=== PATIENT | female | born 1990 | race Asian ===

== ENCOUNTER 2024-12-07 19:47 | Inpatient (IN) | payer OTHER, SELFPAY ==
[2024-12-07 19:50] VITALS: BMI 31.7
[2024-12-07 20:23] VITALS: BP 110/78
[2024-12-07 20:25] LABS: % Basophils 0.3 % (0-2); % Eosinophils 2.1 % (0-6); % Lymphocytes 20.5 % (20.5-51.1); % Monocytes 6.5 % (1.7-9.3); % Neutrophils 69.6 % (42.2-75.2); Absolute Basophils 0.1 10^3/uL (0-0.2); Absolute Eosinophils 0.3 10^3/uL (0-0.7); Absolute Immature Granulocytes 0.2 10^3/uL (0-0.05); Absolute Neutrophils 10.2 10^3/uL (1.4-6.5); Hematocrit 35.5 % (37.0-47.0); Hemoglobin 12.2 g/dL (12.0-16.0); Mean Corp Hgb Conc. 34.4 g/dL (33.0-37.0); Mean Corpuscular Hgb 31.5 pg (27.0-31.0); Mean Corpuscular Volume 91.7 fL (81.0-99.0); Mean Platelet Volume 11.6 fL (7.4-10.4); Nucleated Red Blood Cells % 0 %; Platelet Count 265 10^3/uL (130-400); Red Blood Cell Count 3.87 10^6/uL (4.20-5.40); White Blood Cell Count 14.7 10^3/uL (4.8-10.8)
[2024-12-07] MEDS: CYTOTEC 50 MICROGRAM VAG (20:29)
[2024-12-07] MEDS: LR 1000 IV ×2 (21:44→23:46)
[2024-12-08] MEDS: LR 1000 IV (04:12)
[2024-12-08] MEDS: FENTANYL/BUPIVACAINE 100 EPIDURAL (04:20)
[2024-12-08] MEDS: SUBLIMAZE 100 MCG EPIDURAL (04:20)
[2024-12-08] MEDS: ANCEF 10 IV (07:40)
[2024-12-08] MEDS: ZITHROMAX INFUSION 250 IV (08:00)
[2024-12-08 08:25] LABS: Cord VBG B.E. - POC -3.8 mmol/L; Cord VBG HCO3 - POC 23 mmol/L; Cord VBG O2 Sat % - POC 34.1 %; Cord VBG pCO2 - POC 48 mmHg; Cord VBG pO2 - POC 23 mmHg
[2024-12-08] MEDS: TORADOL 15 MG IV ×2 (13:58→19:57)
[2024-12-08] MEDS: FLUSH (NSS) 3 FLUSH IV (19:57)
[2024-12-09] MEDS: TYLENOL 650 MG PO ×3 (00:37→19:58)
[2024-12-09] MEDS: TORADOL 15 MG IV ×2 (02:04→09:00)
[2024-12-09] MEDS: FLUSH (NSS) 3 FLUSH IV (02:05)
[2024-12-09 04:45] LABS: Hematocrit 27.4 % (37.0-47.0); Hemoglobin 9.2 g/dL (12.0-16.0); Mean Corp Hgb Conc. 33.6 g/dL (33.0-37.0); Mean Corpuscular Hgb 31.7 pg (27.0-31.0); Mean Corpuscular Volume 94.5 fL (81.0-99.0); Mean Platelet Volume 11.6 fL (7.4-10.4); Platelet Count 192 10^3/uL (130-400); Red Cell Dist. Width 14.6 % (11.5-14.5); White Blood Cell Count 17.9 10^3/uL (4.8-10.8)
[2024-12-09] MEDS: PRENATAL PLUS 1 TABLET PO (09:00)
[2024-12-09] MEDS: SENOKOT-S 1 TABLET PO (09:02)
--- NOTE | 2024-12-09 10:54 | CM ---
Mother seen bedside with baby boy and present. Mother interested in breast pump, provided CM with script signed by Doctor. Mother has chosen the [employer]ra pump, referral form faxed to Uma at [facility]. Uma aware of referral and will
deliver pump to patients home tomorrow, home address confirmed by CM. Mother and father report this is their first child, have all supplies needed, plan to return to [place] in January. Mother reports she does not have a nuisance wildlife specialist at this time, is
looking into options and will plan to transition to a new nuisance wildlife specialist once back in [place]. CM will continue to follow for all discharge planning needs.
Plan; home when stable, breast pump ordered
[2024-12-09] MEDS: MOTRIN 600 MG PO (19:57)
[2024-12-10] MEDS: PRENATAL PLUS 1 TABLET PO (08:42)
[2024-12-10] MEDS: SENOKOT-S 1 TABLET PO (08:43)
[2024-12-10] MEDS: MYLICON 80 MG PO (08:44)
[2024-12-10] MEDS: MOTRIN 600 MG PO ×2 (08:45→23:50)
[2024-12-10] MEDS: TYLENOL 650 MG PO ×2 (08:46→23:50)
[2024-12-11] MEDS: PRENATAL PLUS 1 TABLET PO (08:29)
[2024-12-11] MEDS: MOTRIN 600 MG PO (08:29)
[2024-12-11] MEDS: SENOKOT-S 1 TABLET PO (08:29)
[2024-12-11 13:44] LABS: Syphilis/T. pallidum Ab Reflex Negative (Negative)
--- NOTE | 2024-12-11 17:02 | CON.MD ---
Consultation - Medical
-
patient seen chart reviewed. this consult was done today december 11 2024. the patient is a 34 yo woman who gave via c section to a baby boy. there was some distress thick meconium noted in operative note but is now doing well. the patient
scored 13 on depression scale. unit usually accepts up to 10 hence this consult . dell reports over the years she has had some periods where she feels sad but she is able to focus her attention on the good things in her life and she can talk or
rather think herself out of it. she says her sadness occurs when there is conflict in her life as since her childhood when her parents did not get along she has seen herself as the person to negotiate the conflict and make peace. there is currently
an acute conflict in her life. mother and her are engaged in a tiff. she and reside in [place] and they came her for the at mom's request and his parents came from [facility]. i won't go into the conflict here but it is
disturbing patient and her four aunts (mom's sisters) have all taken mom's side because patient reasons they all have 'sucky marriages'. patient and are on the same page in their effort to deal with this conflict and he seems very very
supportive of her. patient has NEVER attempted to harm herself in any way and has never thought about how she might commit suicide although she has had fleeting thoughts in the past of suicide. she has sought therapy in the past for short times
which was helpful. sleep is okay appetite is good. she can enjoy things. she is delighting in the of her son who was planned. she is four years and 'we decided to give ourselves three years to be together...and then,,,' this was a
'modern ' arranged marriage which she feels has been a great + for her.
past psych see above
medical recent caesarean . anemia
substance abuse not
familyl hx mother w depression
social see above patient is a music therapist. college grad. not working now. has hobbies and interests. has friends and supports in [place] where she will return in one month came to us from [facility] when she was [age] one brother here who
is a + in her life
mse alert xo3 cooperative very pleasant honest and interactive no unusual behaviors speech and thought process nl affect appropriate mood is neutral no si aver intelligence no psychosis insight judgment good
plan adjustment d/o
recommendations do not feel patient needs any medication. i recommended that if she starts to feel overwhelmed she seek a therapist to help support her. we talked about the conflict with mom and how she might handle it. she seems well bonded to
her child and and she seem very able to take care of aslan.
--- NOTE | 2024-12-11 17:02 | W.DS.TRANS ---
DC Summary - Cosmetic [employer]
-
Discharge Instructions:
Discharge Diagnosis/Procedures delivery
Instructions:
Stand-Alone Forms: [facility] Delivery
Changes to Home Medications: No
Discharge Medications:
DC Medications w/original date entered in [facility]
1 tab PO DAILY Supplement 12/07/24
ibuprofen 600 mg tablet 600 mg PO Q6HPRN PRN cramps #30 tabs 12/11/24
Home Medication Changes
Pending Results: No
Total time spent discharging patient (in min): 20
== END 2024-12-11 18:34 | disposition home or self-care (01) | DRG 787 ==
LOC: LDRP 19:47
PROVIDERS: ADMITTING PHYSICIAN Obstetrics & Gynecology; CONSULT PHYSICIAN Psychiatry & Neurology Psychiatry
PROC: 10D00Z1 Extraction of Products of Conception, Low, Open Approach (ICD-10-PCS; 2024-12-08)
DX: O48.0 Post-term pregnancy (principal); D62 Acute posthemorrhagic anemia; O76 Abnormality in fetal heart rate and rhythm complicating labor and delivery; Z3A.40 40 weeks gestation of pregnancy; Z37.0 Single live birth; O77.0 Labor and delivery complicated by meconium in amniotic fluid; O90.81 Anemia of the puerperium
CPT/HCPCS: 88307; 36415; 85025; 85027; 86780; 86850; 86900; 86901